=== PATIENT | male | born 1985 | race Caucasian/White ===

== ENCOUNTER → 2016-10-13 15:04 | Emergency (ER) | payer OTHER ==
[2016-10-13 16:41] VITALS: BP 133/88
--- NOTE | 2016-10-19 21:53 | ED ---
Raghav Shaikh Alfonso, scribed for Sterling Arevalo MD on 10/13/16 at 1617 . Progress - Progress Note Progress Note: Patient left without being seen. - Results/Orders Results/Orders: EKG reveals Sinus Tachycardia at 109 BPM. NAC. Course/Dx - Diagnoses Provider Diagnoses: Patient left without being seen The documentation as recorded by the Raghav clifford Alfonso accurately reflects the service I personally performed and the decisions made by Irina estrada Jerry, MD.
== END | disposition home or self-care (01) ==
LOC: ED 15:04
DX: I47.1 Supraventricular tachycardia (principal); Z53.21 Procedure and treatment not carried out due to patient leaving prior to being seen by health care provider
CPT/HCPCS: 93005; 99282

== ENCOUNTER 2017-04-17 03:31 | Emergency (ER) | payer OTHER ==
[2017-04-17] MEDS ORDERED: Adenosine* 3 MG/ML VIAL ONE (03:39)
[2017-04-17] MEDS ORDERED: NS 0.9% 1000 ML* 1,000 ML IV ONE ×2 (03:40)
[2017-04-17] MEDS ORDERED: Adenosine SYRINGE* 6 MG/2 ML IV PUSH ONE (03:40)
[2017-04-17] MEDS ORDERED: Adenosine* 3 MG/ML VIAL IV PUSH ONE (03:45)
[2017-04-17 04:10] LABS: ABS Basophils 0 10^3/ul (0-0.2); ABS Eosinophils 0.1 10^3/ul (0-0.6); ABS Lymphocytes 2.8 10^3/ul (1.0-4.8); ABS Monocytes 0.9 10^3/ul (0-0.8); ABS Neutrophils 10.8 10^3/ul (1.5-7.7); ABS Nucleated RBC 0 10^3/ul; Hematocrit 49 % (42-52); Hemoglobin 16.8 g/dl (14.0-18.0); Lymphocyte % 19.1 % (25-47); Mean Corpuscular HGB Conc 34 g/dl (31-36); Mean Corpuscular Hemoglobin 31 pg (27-31); Mean Corpuscular Volume 89 fL (80-94); Mean Platelet Volume 9 um3 (7.4-10.4); Nucleated Red Blood Cells % 0.2; Platelet Count 251 10^3/ul (150-450); Red Blood Count 5.48 10^6/ul (4.0-5.4); Red Cell Distribution Width 13 % (10.5-15); White Blood Count 14.6 10^3/ul (3.5-10.8)
[2017-04-17] MEDS ORDERED: Metoprolol Tartrate TAB* 25 MG ONE (04:11)
[2017-04-17] MEDS ORDERED: Metoprolol Tartrate TAB* 25 MG PO ONE (04:12)
[2017-04-17 04:20] LABS: EGFR Non-African American 90.3 (>60)
--- NOTE | 2017-04-17 04:23 | ED ---
Addie Shaikh Gabriel, scribed for Dar Carlisle MD on 04/17/17 at 0355 . Palpitations / Dysrhythmia - HPI Summary HPI Summary: This patient is a 32 year old M presenting to [facility] with a chief complaint of palpitations that began 4 hours ago. Pt states he has had this happen before but it usually lasts for at most an hour. Patient reports cough. Pt heart rate at triage is over 200 bpm - History of Current Complaint Chief Complaint: EDDysrhythmPalp Time Seen by Provider: 04/17/17 03:39 Hx Obtained From: Patient Onset/Duration: Lasting Hours - 4, Still Present Timing: Constant Severity Initially: Severe Severity Currently: Severe Character: Fast, Pounding Associated Signs & Symptoms: Negative - n/v/d - Allergy/Home Medications Allergies/Adverse Reactions: Allergies Allergy/AdvReac Type Severity Reaction Status Date / Time No Known Allergies Allergy Verified 10/13/16 15:46 PMH/Surg Hx/FS Hx/Imm Hx Endocrine/Hematology History: Denies: Hx Anticoagulant Therapy, Hx Blood Disorders, Hx Blood Transfusions, Hx Bone Marrow Disease Cardiovascular History: Reports: Other Cardiovascular Problems/Disorders - SVT Respiratory History: Denies: Hx Chronic Bronchitis, Hx Chronic Obstructive Pulmonary Disease (COPD ) Infectious Disease History: No Infectious Disease History: Denies: Traveled Outside the [place] in Last 30 Days - Family History Known Family History: Positive: Cardiac Disease, Hypertension - Social History Alcohol Use: Weekly Substance Use Type: Reports: None Smoking Status (MU): Former Smoker Review of Systems Positive: Palpitations Positive: Cough All Other Systems Reviewed And Are Negative: Yes Physical Exam - Summary Physical Exam Summary: VITAL SIGNS: Reviewed. GENERAL: Patient is a well-developed and nourished malewho is lying comfortable in the stretcher. Patient is not in any acute respiratory distress. Pt is slightly anxious HEAD AND FACE: No signs of trauma. No ecchymosis, hematomas or skull depressions. No sinus tenderness. EYES: PERRLA, EOMI x 2, No injected conjunctiva, no nystagmus. EARS: Hearing grossly intact. Ear canals and tympanic membranes are within normal limits. MOUTH: Oropharynx within normal limits. NECK: Supple, trachea is midline, no adenopathy, no JVD, no carotid bruit, no c- spine tenderness, neck with full ROM. CHEST: Symmetric, no tenderness at palpation LUNGS: Clear to auscultation bilaterally. No wheezing or crackles. CVS: tachycardic, S1 and S2 present, no murmurs or gallops appreciated. ABDOMEN: Soft, non-tender. No signs of distention. No rebound no guarding, and no masses palpated. Bowel sounds are normal. EXTREMITIES: FROM in all major joints, no edema, no cyanosis or clubbing. NEURO: Alert and oriented x 3. No acute neurological deficits. Speech is normal and follows commands. SKIN: Dry and warm Triage Information Reviewed: Yes Vital Signs On Initial Exam: Initial Vitals Temp Pulse Resp BP Pulse Ox 97.5 F 223 18 128/79 92 04/17/17 03:32 04/17/17 03:32 04/17/17 03:32 04/17/17 03:32 04/17/17 03:32 Vital Signs Reviewed: Yes Diagnostics - Vital Signs Vital Signs Temp Pulse Resp BP Pulse Ox 04/17/17 03:32 97.5 F 223 18 128/79 92 - Laboratory Result Diagrams: 04/17/17 03:40 Lab Statement: Any lab studies that have been ordered have been reviewed, and results considered in the medical decision making process. - EKG 0338 Cardiac Rate: Tachycardia EKG Rhythm: Sinus Rhythm - at 122 bpm EKG Interpretation: post adenosine Re-Evaluation - Re-Evaluation First Eval Re-Evaluation Time: 04:11 Change: Improved Comment: Pt feels better does not want tot stay and would like to go home. Course/Dx - Course Assessment/Plan: This patient is a 32 year old M presenting to [facility] with a chief complaint of palpitations that began 4 hours ago. Pt states he has had this happen before but it usually lasts for at most an hour. Patient reports cough. An EKG reveals sinus 122, post adenosine. Test results with no significant abnormalities. In the ED course the patient was given adenosine, Lopressor, and IV fluids. Pt was converted and is ready to go home. Dx SVT. Patient will be discharged and follow up from physician referral center. The patient is agreeable with this plan. - Diagnoses Provider Diagnoses: SVT (supraventricular tachycardia) Discharge - Discharge Plan Condition: Stable Disposition: HOME Patient Education Materials: Supraventricular Tachycardia (ED) Referrals: [facility] PHYSICIAN REFERRAL [Outside] - 4 Days Additional Instructions: RETURN TO EMERGENCY DEPARTMENT FOR ANY NEW OR WORSENING SYMPTOMS The documentation as recorded by the Addie clifford Gabriel accurately reflects the service I personally performed and the decisions made by me, Dar Carlisle MD.
[2017-04-17 04:24] LABS: INR 0.97 (0.77-1.02)
[2017-04-17 04:31] VITALS: BP 131/91
== END 2017-04-17 04:30 | disposition home or self-care (01) ==
LOC: ED 03:31
DX: I47.1 Supraventricular tachycardia (principal); R00.2 Palpitations; R05 Cough; Z87.891 Personal history of nicotine dependence
CPT/HCPCS: 36415; 80053; 83605; 83735; 84443; 84484; 85025; 85610; 85730; 93005; 96374; 99284; J0153